=== PATIENT | male | born 1955 | race Caucasian/White ===

== ENCOUNTER 2022-12-27 16:53 | Outpatient (CLI) | payer MEDICARE, BC | END 2022-12-27 16:54 | disposition short-term general hospital (02) | LOC: EMS 16:53 | DX: I21.09 ST elevation (STEMI) myocardial infarction involving other coronary artery of anterior wall (principal) | CPT/HCPCS: A0425; A0427 ==

== ENCOUNTER 2023-07-15 08:53 | Outpatient (CLI) | payer BC, MEDICARE ==
[2023-07-15 09:34] LABS: ALKALINE PHOSPHATASE 34 IU/L (42-121); ALT ALANINE AMINOTRANSFERASE 46 IU/L (10-60); AST ASPARTATE AMINOTRANSFERASE 39 IU/L (10-42); BILIRUBIN,TOTAL 2.2 mg/dL (0.2-1.0); CHOL/HDL RATIO 2.2 (<5.0); CHOLESTEROL 102 mg/dL; CK- CREATINE KINASE 191 IU/L (30-223); HDL CHOLESTEROL 47 mg/dL; LDL CHOLESTEROL,CALCULATED 43 mg/dL; LDL CHOLESTEROL,DIRECT 45 mg/dL (75-193); LDL/HDL RATIO 0.9 (<3.6); TOTAL PROTEIN 7.4 g/dL (6.4-8.9); TRIGLYCERIDES 62 mg/dL (48-352); VLDL CHOLESTEROL 12 mg/dL
== END 2023-07-15 08:54 | disposition home or self-care (01) ==
LOC: LAB 08:53
PROVIDERS: ATTEND Internal Medicine
DX: T46.6X5A Adverse effect of antihyperlipidemic and antiarteriosclerotic drugs, initial encounter (principal); G72.0 Drug-induced myopathy; E78.00 Pure hypercholesterolemia, unspecified
CPT/HCPCS: 36415; 80061; 80076; 82550; 83721

== ENCOUNTER 2023-09-21 09:52 | Outpatient (CLI) | payer BC, MEDICARE ==
[2023-09-21 10:38] LABS: ALBUMIN 4.1 g/dL (3.2-5.5); ALBUMIN/GLOBULIN RATIO 1.1 (1.0-2.2); BILIRUBIN,TOTAL 1.5 mg/dL (0.2-1.0); CALCIUM 9.2 mg/dL (8.5-10.3); CREATININE 0.8 mg/dL (0.6-1.3); POTASSIUM 4.1 mmol/L (3.5-4.5); TOTAL PROTEIN 7.8 g/dL (6.4-8.9)
[2023-09-21 10:54] LABS: FERRITIN 97.5 ng/mL (23.9-336.2)
[2023-09-22 04:08] LABS: HBsAG SCREEN Negative (Negative); HCV AB Non Reactive (Non Reactive); HEPATITIS B CORE IGM AB Negative (Negative)
[2023-09-23 10:09] LABS: ACTIN (SMOOTH MUSCLE) ANTIBODY 5 Units (0-19); MITOCHONDRIAL (M2) ANTIBODY <20.0 Units (0.0-20.0)
[2023-09-24 19:07] LABS: ANTINUCLEAR ANTIBODIES IFA Negative (.)
== END 2023-09-21 09:53 | disposition home or self-care (01) ==
LOC: LAB 09:52
PROVIDERS: ATTEND Family Medicine
DX: R79.89 Other specified abnormal findings of blood chemistry (principal)
CPT/HCPCS: 36415; 80053; 80074; 82390; 82728; 83540; 84466; 86015; 86038; 86381